=== PATIENT | female | born 1990 | race Caucasian/White ===

== ENCOUNTER → 2023-04-07 | Outpatient (CLI) | payer OTHER ==
[2023-04-07 14:19] LABS: Basophils # (A) 0.05 X 10*3/uL (0.00-0.10); Basophils % (A) 0.9 %; Eosinophils % (A) 1.9 %; HCT 40.8 % (37.2-46.3); Immature Grans, Automated 0.2 %; Lymphocytes # (A) 1.71 X 10*3/uL (0.90-5.00); MCH 30.9 pg (27.0-32.0); MCHC 34.3 g/dL (32.0-37.0); MCV 90.1 fL (80.0-97.0); Mean Platelet Volume 10.5 fL (9.5-12.2); Monocytes # (A) 0.44 X 10*3/uL (0.20-1.00); Monocytes % (A) 8.2 %; NRBC Per 100 WBC 0 /100 WBCS (0.0-0.0); Neutrophils # (A) 3.03 X 10*3/uL (1.80-7.70); Neutrophils % (A) 56.8 %; Platelet Count 302 X 10*3/uL (140-440); RBC 4.53 X 10*6/uL (4.10-5.20); RDW 12.3 % (11.5-14.5); WBC 5.34 X 10*3/uL (4.50-10.00)
== END | disposition home or self-care (01) ==
LOC: LABPAT 09:44
PROVIDERS: ATTEND Obstetrics & Gynecology
DX: Z01.812 Encounter for preprocedural laboratory examination (principal); N92.0 Excessive and frequent menstruation with regular cycle
CPT/HCPCS: 36415; 85025

== ENCOUNTER 2023-04-13 05:48 | Day surgery (SDC) | payer OTHER ==
--- NOTE | 2023-04-06 07:51 | HP ---
HISTORY AND PHYSICAL H and P for surgery on 04/13/2023. HISTORY OF PRESENT ILLNESS: This is a 33-year-old 1, para 1-0-0-1, who presents requesting laparoscopic tubal ligation, along with hysteroscopy and NovaSure. The patient desires no further children and is requesting permanent tubal sterilization. In addition, her menses last for 10 days in duration and are heavy with the passage of large blood clots. She does not have intermenstrual spotting. Endometrial biopsy has been done in the office and returned within normal limits. REVIEW OF SYSTEMS: Otherwise, negative. PAST MEDICAL HISTORY: Significant for anxiety and depression, frequent bacterial vaginosis, frequent yeast infections, and ovarian cyst. PAST SURGICAL HISTORY: Adenoidectomy and tonsillectomy, eye surgery, and endometrial polyp removal. CURRENT MEDICATIONS: Multivitamins daily. ALLERGIES: Ceclor to which she reports hives. FAMILY HISTORY: Significant for hypertension. REPRODUCTIVE HISTORY: Normal spontaneous vaginal delivery x1 in 2019, healthy infant, unremarkable delivery. SOCIAL HISTORY: The patient has never been a smoker. She denies any alcohol use. She does smoke marijuana almost daily. She is employed locally. She is not . PHYSICAL EXAMINATION: VITAL SIGNS: The patient is 5 feet 5 inches, 151 pounds, pulse 77, blood pressure 120/80. HEENT: Exam reveals good dentition. No thyromegaly. Trachea midline NECK: Supple. CHEST: Clear to auscultation in all gongora anteriorly and posteriorly. CARDIAC: Reveals regular rate and rhythm. No murmur, click, or rub. BREASTS: Bilaterally symmetric to inspection with no skin dimpling, nipple discharge, or axillary adenopathy. No discernible lesions or masses. ABDOMEN: Soft and nontender. Active bowel sounds. No organosplenomegaly. PELVIC: On inspection of the external genitalia, they are normal in appearance. The cervix is also normal and multiparous. Pap smear up-to-date. The uterus is mobile, smooth, small, and anteverted. Adnexa are negative to palpation bilaterally. RECTAL: Reveals good sphincter tone. No obvious hemorrhoids. MENTAL STATUS: The patient is alert and oriented x3. Good judgment and insight. Normal mood and affect. IMPRESSION: Menorrhagia, family planning, the patient is requesting hysteroscopy, NovaSure ablation, and laparoscopic tubal ligation with Filshie clips. PLAN: We will proceed with surgery as detailed. All other contraceptive options have been offered and declined. The ACOG pamphlets on these both procedures have been provided for her review, and all questions were answered. We reviewed the risks of anesthesia to include aspiration, nerve damage, or even remotely . Risks of surgical infection, bleeding, perforation or damage to bladder, bowels, ureters, or blood vessels all reviewed. Questions were answered. MMODL / IJN: [id number] /
[2023-04-12 09:21] VITALS: BMI 26.1
[~2023-04-13 05:48] MED LIST: Pre Op ABX Message 1 EACH MISC MISCELLANE ONE
[2023-04-13] MEDS ORDERED: LACTATED RINGERS 1,000 ML IV ONE (06:29)
[2023-04-13] MEDS ORDERED: ONDANSETRON 4 MG/2 ML VIAL ONE (06:36)
[2023-04-13] MEDS ORDERED: DEXAMETHASONE SOD PHOSPHATE 4 MG/ML 1 ML VIAL IVP ONE (06:41)
[2023-04-13] MEDS ORDERED: ONDANSETRON 4 MG/2 ML VIAL IVP ONE (06:42)
[2023-04-13] MEDS ORDERED: BUPIVACAINE (PF) 0.25% 30 ML VIAL SQ ONE ×2 (07:09)
[2023-04-13] MEDS ORDERED: PROPOFOL 10 MG/ML 20 ML VIAL IV ONE (07:12)
[2023-04-13] MEDS ORDERED: SUCCINYLCHOLINE CHLORIDE 200 MG/10 ML VIAL IV ONE (07:12)
[2023-04-13] MEDS ORDERED: fentaNYL (PF) 50 MCG/ML 2 ML AMP ONE (07:12)
[2023-04-13] MEDS ORDERED: ROCURONIUM 10 MG/ML (5 ML VIAL) IV ONE (07:12)
[2023-04-13] MEDS ORDERED: GLYCOPYRROLATE 0.2 MG/ML 2 ML VIAL ONE (07:12)
[2023-04-13] MEDS ORDERED: NEOSTIGMINE 1 MG/ML 10 ML VIAL ONE (07:12)
[2023-04-13] MEDS ORDERED: LIDOCAINE 2% INJ 20 MG/ML (2 ML VIAL) ONE (07:12)
[2023-04-13] MEDS ORDERED: KETOROLAC 15 MG/ML 1 ML VIAL ONE (07:12)
[2023-04-13 08:10] VITALS: TEMP 97
--- NOTE | 2023-04-13 08:12 | P.OP ---
Date of Procedure: 04/13/23 Preoperative Diagnosis: Undesired fertility, menorrhagia Postoperative Diagnosis: Same, normal-appearing ovaries bilaterally, negative intrauterine cavity Procedure(s) Performed: Laparoscopic tubal ligation with Filshie clips, hysteroscopy, NovaSure endome trial ablation Anesthesia: TIANNAA Surgeon: Monique Vitale Estimated Blood Loss (ml): 20 IV fluids (ml): 300 Urine output (ml): 150 Pathology: none sent Condition: stable Disposition: PACU Operative Findings: Negative appearing intrauterine cavity. Normal-appearing tubes and ovaries bilaterally. Negative pelvis, no adhesions or endometriosis. Description of Procedure: Patient is brought to the operating suite where a general anesthetic is administered without difficulty. The abdomen and pelvis are wrapped and draped in the usual sterile fashion. The appropriate timeout is performed to assure proper patient and procedural identification. Urine hCG is negative. Examination under anesthesia reveals a small anteverted uterus, negative adnexa bilaterally. Bladder is drained for approximately 150 mL of clear yellow urine. Speculum was placed into the vagina, anterior lip of the cervix is grasped with an Allis clamp and the acorn is placed onto the cervix and attached to the Allis clamp. The speculum is removed. Attention is now drawn to the abdominal wall. A small infraumbilical incision is made, Veress needle is placed and placement is checked with hanging drop technique. Abdomen is insufflated under low filling pressures of approximately 6-8 mmHg for a total of 3.5 L of CO2 gas. Veress needle is removed. Trochars placed and placement is atraumatic. Second incision is made suprapubically, a second trocar is placed under direct visualization, atraumatic. The patient is now positioned in the Trendelenburg position and the uterus is antevert and swept to the side from below. The right fallopian tube is visualized in its entirety to the fimbriated end. A Filshie clip is placed in the isthmic portion of the tube with care to traverse the entire diameter of the tube into the mesal salpinx. The same procedure is carried out contralaterally, again the left fimbriated and is visualized and the clip is placed in the isthmic portion through the diameter of the tube into the mesal salpinx. Bilateral ovaries appear healthy and normal. CO2 gas was allowed to diffuse. 3-0 undyed Vicryl is used in a subcuticular manner to close the skin incisions. They are injected with quarter percent Marcaine without epinephrine, 4 mL each to aid in postoperative analgesia. Attention is now drawn back to the perineal body. Speculum is replaced, acorn cannula is removed. Uterus sounds to a depth of 6 cm in the anteverted position. The cervix is gently and systematically dilated using Hanks dilators. Hysteroscope was placed and the cavity is infused with sterile saline. It is inspected and noted to be completely clear with no polyps, septa, or defects. Hysteroscope was removed. NovaSure wand is placed and seated properly. Uterine length of 4.5 cm, width of 3.6 cm is chosen. The machine is carefully enabled and for 85 seconds and a power of 89 W the procedure is carried out. When completed the wand is reduced and removed. Hysteroscope was once again placed and the cavity appears to be uniformly blanched. All instrumentation is removed from the vagina. All sponge needle and inspect counts are correct. Patient is brought back to recovery room with stable vital signs including blood pressure 126/62, pulse 63, 99% O2 saturation. Toradol is given prior to leaving the operative room.
[2023-04-13] MEDS ORDERED: HYDROmorphone 0.5 MG/0.5 ML SYRINGE IVP ONE (08:17)
[2023-04-13 09:18] VITALS: RESP 16
[2023-04-13] MEDS ORDERED: ACETAMINOPHEN TAB 500 MG TAB ONE (09:57)
[2023-04-13 10:11] VITALS: BP 137/87; PULSE 69
== END 2023-04-13 10:25 | disposition home or self-care (01) ==
LOC: OR 05:48
PROVIDERS: ATTEND Obstetrics & Gynecology
DX: N92.0 Excessive and frequent menstruation with regular cycle (principal); Z30.2 Encounter for sterilization; N85.4 Malposition of uterus; F41.9 Anxiety disorder, unspecified; F32.A Depression, unspecified; Z86.16 Personal history of COVID-19; Z98.890 Other specified postprocedural states; Z88.1 Allergy status to other antibiotic agents; Z79.899 Other long term (current) drug therapy
CPT/HCPCS: 81025; 58563; 58671; J0330; J1100; J2710; J2405; J3010; J1885; J2704; J1170; J2001